=== PATIENT | female | born 1935 | race Caucasian/White ===

== ENCOUNTER 2021-02-20 09:20 | Outpatient (CLI) | payer MEDICARE ==
[~2021-02-20 09:20] MED LIST: ALEN70TA77 PO; ALPR1TAB2 PO; AMLO-150 PO; ASPI-963 PO; CHOL10002 PO; CHOL10003 PO; DOCU-131 PO; HYDR-2214 PO; LATA7.5D EACHEYE; LOSA100T14 PO; LOVA20TA2 PO; METH-639 PO; OXYC1TAB14 PO; RALO60TA PO; TIMO1DRO6 EACHEYE; TRAM50TA2 PO; glaucoma drops EACHEYE
== END 2021-02-20 23:59 | disposition home or self-care (01) ==
LOC: RAD 09:20
PROVIDERS: ATTEND Internal Medicine
DX: G31.9 Degenerative disease of nervous system, unspecified (principal); R41.3 Other amnesia; R44.1 Visual hallucinations
CPT/HCPCS: 70551

== ENCOUNTER 2021-06-30 02:43 | Inpatient (IN) | payer MEDICARE ==
[2021-06-30] VITALS (9 sets, daily range): BP systolic 114–165; BP diastolic 77–100
[~2021-06-30] VITALS: Ht 162.6 cm; Wt 67.6 kg
[~2021-06-30 02:43] MED LIST changes: +OXYC1TAB12 PO; -OXYC1TAB14 PO
--- NOTE | 2021-06-30 02:51 | NUR ---
EKG DONE IN TRIAGE.
--- NOTE | 2021-06-30 03:04 | NUR ---
PATIENT PRESENTS WITH DAUGHTER C/O OF LETHARGY, COUGH, DECREASED PO INTAKE, AND CONFUSION. TESTED +COVID 06/27. WAS NOT VACCINATED. TRIAGE NOTE
[2021-06-30] MEDS ORDERED: SODIUM CHLORIDE 0.9% 1,000 ML IV ONE (03:30)
[2021-06-30] MEDS ORDERED: SODIUM CHLORIDE FLUSH 10ML SYR IVF ONE (03:30)
[2021-06-30 03:33] LABS: BASOPHILS % (AUTO) 1 % (0-1); EOSINOPHILS % (AUTO) 0 % (1-7); LYMPHOCYTES % (AUTO) 24 % (22-44); MEAN CORPUSCULAR HEMOGLOBIN 31.3 pg (27.0-34.8); MEAN CORPUSCULAR HGB CONC 35.5 g/dL (32.4-35.8); MEAN PLATELET VOLUME 9.5 fL (7.4-10.4); MONOCYTES % (AUTO) 20 % (2-9); NEUTROPHILS % (AUTO) 56 % (42-75); PLATELET COUNT 129 x10^3/uL (130-400); RED BLOOD COUNT 4.48 x10^6/uL (3.82-5.3); RED CELL DISTRIBUTION WIDTH 13.4 % (9.6-15.2)
[2021-06-30 03:43] LABS: ALANINE AMINOTRANSFERASE 23 U/L (12-78); ALBUMIN 3.1 g/dL (3.4-5.0); ANION GAP 9 mmol/L (5-15); CHLORIDE 97 mmol/L (98-107); CREATININE 0.64 mg/dL (0.55-1.02)
[2021-06-30 03:47] LABS: ALKALINE PHOSPHATASE 105 U/L (45-117); BILIRUBIN,TOTAL 0.8 mg/dL (0.2-1.0); TROPONIN I < 0.015 ng/mL (0.000-0.045)
--- NOTE | 2021-06-30 04:08 | NUR ---
PT OFF UNIT IN IMAGING. PT RESISTANT TO UA AND WOULD NOT LET BREAK RN OBTAIN UA DR LEMONS NOTIFIED AND STATES WE DO NOT NEED UA.
--- NOTE | 2021-06-30 04:51 | NUR ---
pt urinated on self and bed sheets. pt changed and cleansed to protocol. pt bed sheets changed. pt given new heated blankets. pt attached to monitors. ke mckeon at moment.
--- NOTE | 2021-06-30 04:54 | NUR ---
pt daughter stopped break nurse of getting ua due to the fact that it was causing her to much distress. pt daughter had pt refuse it.
[2021-06-30] MEDS ORDERED: CEFTRIAXONE 1,000 MG in DEXTROSE 5% 50 ML IVPB ONE (05:00)
[2021-06-30] MEDS ORDERED: AZITHROMYCIN 500 MG in SODIUM CHLORIDE 0.9% 250 ML IV ONE (05:30)
--- NOTE | 2021-06-30 05:40 | NUR ---
Patient is resting comfortably in bed. Bed in lowest, rails engaged, call light on lap. Vital Signs within normal limits. WCTM. PT BEGAN TO TALK AND BECOME MORE AWARE AND ALERT OF SITUATION. PT THANKED THIS NURSE FOR CARE.
--- NOTE | 2021-06-30 06:03 | NUR ---
pt sleeping in bed. eyes closed. snoring. celson. tm
--- NOTE | 2021-06-30 06:29 | NUR ---
180 bp was taken while bp cuff was on loose. Retook bp for accurate reading
[2021-06-30] MEDS ORDERED: DOCUSATE 100 MG CAPSULE PO PRN (06:30)
[2021-06-30] MEDS ORDERED: TRAZODONE 50MG TABLET PO PRN (06:30)
[2021-06-30] MEDS ORDERED: hydrALAzine 20 MG/ML, 1ML IVPush PRN (06:30)
[2021-06-30] MEDS ORDERED: POLYETHYLENE GLYCOL 17 GM PACKET PO PRN (06:30)
[2021-06-30] MEDS ORDERED: GUAIFENESIN/DM 200-20MG, 10ML UDC PO PRN (06:30)
[2021-06-30] MEDS ORDERED: BISACODYL 10 MG SUPP PR PRN (06:30)
[2021-06-30] MEDS ORDERED: ACETAMINOPHEN 325 MG TABLET PO PRN (06:30)
[2021-06-30] MEDS ORDERED: ENALAPRILAT 1.25 MG/ML, 2ML IVPush PRN (06:30)
[2021-06-30] MEDS ORDERED: PHARMACY MAY ADJ FOR RENAL FX MC PRN (06:30)
[2021-06-30] MEDS ORDERED: PROCHLORPERAZINE 5 MG/ML, 2ML IVPush PRN (06:30)
[2021-06-30] MEDS ORDERED: PROCHLORPERAZINE 10MG TABLET PO PRN (06:30)
[2021-06-30] MEDS ORDERED: LABETALOL 5MG/ML, 20ML IVPush PRN (06:30)
--- NOTE | 2021-06-30 06:37 | NUR ---
gave reporet to krista graff
[2021-06-30] MEDS: ASCORBIC ACID 500 MG TABLET PO SCH ×2 (09:32→21:01)
[2021-06-30] MEDS: ENOXAPARIN 40 MG/0.4 ML SQ SCH (09:32)
[2021-06-30] MEDS: ZINC SULFATE 220 MG CAPSULE PO SCH (09:32)
[2021-06-30] MEDS: LACTULOSE 10 GM/15 ML UDC PO SCH ×2 (09:32→21:00)
[2021-06-30] MEDS: FAMOTIDINE 20 MG TABLET PO SCH (09:33)
--- NOTE | 2021-06-30 10:10 | NUR ---
LETY LONGO - Fall Risk Medication(s) present and receiving anticoagulants.
[2021-07-01 00:05] VITALS: BP 147/86
[2021-07-01] MEDS: CEFTRIAXONE 1,000 MG in DEXTROSE 5% 50 ML IVPB SCH (05:18)
[2021-07-01 05:22] LABS: HCT (SEDRATE) 40.2 % (34.6-47.8)
[2021-07-01 05:35] LABS: CHLORIDE 103 mmol/L (98-107)
[2021-07-01 05:49] LABS: BASOPHILS % (AUTO) 0 % (0-1); EOSINOPHILS % (AUTO) 0 % (1-7); LYMPHOCYTES % (AUTO) 20 % (22-44); MEAN CORPUSCULAR HEMOGLOBIN 30.7 pg (27.0-34.8); MEAN PLATELET VOLUME 9.6 fL (7.4-10.4); MONOCYTES % (AUTO) 21 % (2-9); NEUTROPHILS % (AUTO) 59 % (42-75); PLATELET COUNT 133 x10^3/uL (130-400); RED BLOOD COUNT 4.52 x10^6/uL (3.82-5.3); RED CELL DISTRIBUTION WIDTH 13.4 % (9.6-15.2)
[2021-07-01 05:59] LABS: ALANINE AMINOTRANSFERASE 22 U/L (12-78); ALKALINE PHOSPHATASE 108 U/L (45-117); ANION GAP 11 mmol/L (5-15); BILIRUBIN,TOTAL 0.8 mg/dL (0.2-1.0); CALCIUM 8.1 mg/dL (8.5-10.1); CREATININE 0.52 mg/dL (0.55-1.02); TOTAL PROTEIN 6.8 g/dL (6.4-8.2)
[2021-07-01] MEDS: AZITHROMYCIN 500 MG in SODIUM CHLORIDE 0.9% 250 ML IV SCH (06:14)
[2021-07-01] MEDS: LACTULOSE 10 GM/15 ML UDC PO SCH ×2 (06:50→19:39)
[2021-07-01 08:01] VITALS: BP 154/85
[2021-07-01] MEDS: ZINC SULFATE 220 MG CAPSULE PO SCH (08:03)
[2021-07-01] MEDS: ENOXAPARIN 40 MG/0.4 ML SQ SCH (08:03)
[2021-07-01] MEDS: ASCORBIC ACID 500 MG TABLET PO SCH ×2 (08:03→19:39)
[2021-07-01] MEDS: FAMOTIDINE 20 MG TABLET PO SCH (08:04)
[2021-07-01 11:39] VITALS: BP 133/77
[2021-07-01] MEDS ORDERED: POTASSIUM CHLORIDE 20 MEQ TAB.ER.PRT PO ONE (12:00)
[2021-07-01 13:01] VITALS: BP 115/81
[2021-07-01 18:52] VITALS: BP 151/94
[2021-07-02 00:51] VITALS: BP 155/95
[2021-07-02] MEDS: CEFTRIAXONE 1,000 MG in DEXTROSE 5% 50 ML IVPB SCH (05:03)
[2021-07-02] MEDS: AZITHROMYCIN 500 MG in SODIUM CHLORIDE 0.9% 250 ML IV SCH (06:03)
[2021-07-02 06:19] VITALS: BP 160/71
[2021-07-02 06:22] LABS: HCT (SEDRATE) 39.1 % (34.6-47.8)
[2021-07-02 06:24] LABS: BASOPHILS % (AUTO) 1 % (0-1); EOSINOPHILS % (AUTO) 0 % (1-7); LYMPHOCYTES % (AUTO) 19 % (22-44); MEAN CORPUSCULAR HGB CONC 35.3 g/dL (32.4-35.8); MEAN PLATELET VOLUME 9.1 fL (7.4-10.4); MONOCYTES % (AUTO) 20 % (2-9); NEUTROPHILS % (AUTO) 60 % (42-75); PLATELET COUNT 144 x10^3/uL (130-400); RED BLOOD COUNT 4.45 x10^6/uL (3.82-5.3); RED CELL DISTRIBUTION WIDTH 13.3 % (9.6-15.2)
[2021-07-02 06:34] LABS: ALBUMIN 2.7 g/dL (3.4-5.0); ANION GAP 11 mmol/L (5-15); CALCIUM 7.8 mg/dL (8.5-10.1); CHLORIDE 105 mmol/L (98-107)
[2021-07-02 06:38] LABS: ALANINE AMINOTRANSFERASE 22 U/L (12-78); ALKALINE PHOSPHATASE 107 U/L (45-117); BILIRUBIN,TOTAL 0.6 mg/dL (0.2-1.0); CREATININE 0.51 mg/dL (0.55-1.02); TOTAL PROTEIN 6.6 g/dL (6.4-8.2)
[2021-07-02] MEDS: ASCORBIC ACID 500 MG TABLET PO SCH ×2 (07:59→21:00)
[2021-07-02] MEDS: ZINC SULFATE 220 MG CAPSULE PO SCH (07:59)
[2021-07-02] MEDS: FAMOTIDINE 20 MG TABLET PO SCH (07:59)
[2021-07-02] MEDS: LACTULOSE 10 GM/15 ML UDC PO SCH ×2 (08:00→21:00)
[2021-07-02] MEDS: ENOXAPARIN 40 MG/0.4 ML SQ SCH (08:00)
[2021-07-02] MEDS ORDERED: POTASSIUM CHLORIDE 40 MEQ in SODIUM CHLORIDE 0.9% 500 ML IV ONE (09:00)
[2021-07-02] MEDS ORDERED: POTASSIUM CHLORIDE 20 MEQ TAB.ER.PRT PO ONE (09:00)
[2021-07-02] MEDS ORDERED: AZIT500T10 PO (09:49)
[2021-07-02] MEDS ORDERED: ASPI81TA45 PO (09:49)
[2021-07-02] MEDS ORDERED: CEFD300C37 PO (09:49)
[2021-07-02] MEDS ORDERED: ASCO500T9 PO (09:49)
[2021-07-02] MEDS ORDERED: ZINC220C8 PO (09:49)
[2021-07-02] MEDS ORDERED: GUAI5SYR PO (09:49)
[2021-07-02] MEDS ORDERED: POTA20TA14 PO ×2 (09:55)
[2021-07-02] MEDS: AMLODIPINE 2.5 MG TABLET PO SCH (10:09)
[2021-07-02] MEDS: LOSARTAN 100 MG TAB PO SCH (10:09)
[2021-07-02 12:41] VITALS: BP 148/87
[2021-07-02 22:31] VITALS: BP 152/94
[2021-07-02 22:44] VITALS: BP 150/86
[2021-07-03 00:31] VITALS: BP 160/94
[2021-07-03 06:14] LABS: C-REACTIVE PROTEIN, QUANT 3.3 mg/dL (0.02-0.49)
[2021-07-03 07:00] VITALS: BP 144/80
[2021-07-03] MEDS: ASCORBIC ACID 500 MG TABLET PO SCH ×2 (08:45→08:51)
[2021-07-03] MEDS: CEFDINIR 300 MG CAPSULE PO SCH ×2 (08:45→08:51)
[2021-07-03] MEDS: LOSARTAN 100 MG TAB PO SCH ×2 (08:45→08:50)
[2021-07-03] MEDS: FAMOTIDINE 20 MG TABLET PO SCH ×2 (08:45→08:51)
[2021-07-03] MEDS: LACTULOSE 10 GM/15 ML UDC PO SCH ×2 (08:45→08:50)
[2021-07-03] MEDS: AMLODIPINE 2.5 MG TABLET PO SCH ×2 (08:46→08:50)
[2021-07-03] MEDS: ENOXAPARIN 40 MG/0.4 ML SQ SCH ×2 (08:46→08:51)
[2021-07-03] MEDS: ZINC SULFATE 220 MG CAPSULE PO SCH ×2 (08:46→08:51)
[2021-07-03] MEDS ORDERED: AZITHROMYCIN 500 MG TABLET PO SCH (09:00)
== END 2021-07-03 16:18 | disposition home or self-care (01) | DRG 871 ==
LOC: ED 06:08 → EDIP 06:36 → 3N 07:12
PROVIDERS: ADMIT Internal Medicine; ATTEND Family Medicine
DX: A41.9 Sepsis, unspecified organism (principal); U07.1 COVID-19; J12.82 Pneumonia due to coronavirus disease 2019; J96.01 Acute respiratory failure with hypoxia; J18.9 Pneumonia, unspecified organism; E87.1 Hypo-osmolality and hyponatremia; D69.6 Thrombocytopenia, unspecified; D72.819 Decreased white blood cell count, unspecified; E87.6 Hypokalemia; I10 Essential (primary) hypertension; M81.0 Age-related osteoporosis without current pathological fracture; Z66 Do not resuscitate; Z96.641 Presence of right artificial hip joint; F41.9 Anxiety disorder, unspecified; R53.81 Other malaise; E86.0 Dehydration; Z90.49 Acquired absence of other specified parts of digestive tract
CPT/HCPCS: 36415; 71250; 72170; 74176; 80053; 82728; 83605; 83615; 83735; 84100; 84145; 84484; 85025; 85651; 86140; 87040; 93005; 99285; G0378; J0456; J0696; J1650; J3480; J7030; J7040; J7050